=== PATIENT | male | born 1985 | race Caucasian/White ===

== ENCOUNTER 2017-09-12 11:24 | Emergency (ER) | payer OTHER ==
[~2017-09-12] VITALS: Ht 172.7 cm; Wt 91.4 kg
[2017-09-12 11:53] VITALS: BP 121/77
--- NOTE | 2017-09-12 12:02 | NUR ---
32M BIB FAMILY C/O COUGH WITH PRODUCTIVE WHITE PHLEGM X 1 WEEK; BL LUNG SOUNDS CLEAR, RR EVEN/UNLABORED, EQUAL RISE/FALL OF CHEST NOTED AT THIS TIME; PT C/O THROAT PAIN WITH COUGHING, PRESSURE, NON-RADIATING, 9/10 AT THIS TIME; PT C/O 2 EPISODES OF NAUSEA AND VOMITING, BUT STATES NO NAUSEA, VOMITING OR DIARRHEA AT THIS TIME; ABDOMEN SOFT, NON-TENDER, ACTIVE BOWEL SOUNDS X 4 QUADRANTS; PT AA&OX4, PERRLA, SKIN IS WARM/DRY/INTACT AT THIS TIME; STEADY GAIT; PT RESTING IN BED WITH HOB ELEVATED AND IN LOWEST POSITION; POSITIONED FOR COMFORT; ER MD MADE AWARE OF STATUS. WILL CONTIUE TO MONITOR.
--- NOTE | 2017-09-12 12:02 | NUR ---
PT AMBULATED TO BED 7.
--- NOTE | 2017-09-12 12:02 | NUR ---
XRAY AT BEDSIDE.
[2017-09-12] MEDS ORDERED: ALBUTEROL SULFATE/IPRATROPIU 3 ML SOL IH ONE (12:10)
[2017-09-12] MEDS ORDERED: predniSONE 20 MG TAB PO ONE (12:10)
--- NOTE | 2017-09-12 12:18 | NUR ---
RT AT BEDSIDE.
[2017-09-12 13:43] VITALS: BP 122/76
--- NOTE | 2017-09-12 13:43 | NUR ---
Patient discharged with v/s stable. Written and verbal after care instructions given and explained. Patient alert, oriented and verbalized understanding of instructions. Ambulatory with steady gait. All questions addressed prior to discharge. ID band removed. Patient advised to follow up with PMD. Rx of ALBUTEROL 90MCG/ACTUATION INHALATION, ZITHROMAX Z-SIRIA 250MG TAB AND PREDNISONE 50MG TAB given. Patient educated on indication of medication including possible reaction and side effects. Opportunity to ask questions provided and answered.
== END 2017-09-12 13:43 | disposition home or self-care (01) ==
LOC: MED 11:24
DX: J20.9 Acute bronchitis, unspecified (principal)
CPT/HCPCS: 71010; 94640; 94760; 99283; J7512; J7620; Q0092

== ENCOUNTER 2018-01-09 16:11 | Emergency (ER) | payer OTHER ==
[~2018-01-09] VITALS: Ht 162.6 cm; Wt 91.2 kg
[2018-01-09 16:17] VITALS: BP 134/74
--- NOTE | 2018-01-09 16:21 | NUR ---
Pt taken to chair B
--- NOTE | 2018-01-09 16:24 | NUR ---
32M BIB SELF C/O LOW BACK PAIN S/P " LIFTING A POOL" X 3 DAYS AGO. PT STATES " I FEEL GOOD NOW, BUT I NEED TO BE CLEARED FOR WORK". DENIES N/V/D; SKIN IS PINK/WARM/DRY; AAOX4 WITH EVEN AND STEADY GAIT; LUNGS CLEAR BL; HR EVEN AND REGULAR; PT DENIES ANY FEVER, CP, SOB, OR COUGH AT THIS TIME; PATIENT STATES PAIN OF 0/10 AT THIS TIME; VSS; ER MD MADE AWARE OF PT STATUS.
[2018-01-09 16:57] VITALS: BP 134/74
--- NOTE | 2018-01-09 16:57 | NUR ---
Patient discharged with v/s stable. Written and verbal after care instructions given and explained. Patient verbalized understanding. Ambulatory with steady gait. All questions addressed prior to discharge. Advised to follow up with PMD.
== END 2018-01-09 16:57 | disposition home or self-care (01) ==
LOC: MED 16:11
DX: M54.5 Low back pain (principal)
CPT/HCPCS: 99281

== ENCOUNTER 2018-06-29 10:39 | Emergency (ER) | payer OTHER ==
[~2018-06-29] VITALS: Ht 167.6 cm; Wt 86.2 kg
[2018-06-29 10:43] VITALS: BP 122/52
--- NOTE | 2018-06-29 10:48 | NUR ---
pt ambualtes w/ steady gait to bed 7 at this time w/ even, steady gait. Report given to STEPHANY Sherman.
--- NOTE | 2018-06-29 10:54 | NUR ---
33 yo m bib self w/ c/o sore throat, "stuffy nose" and head congestion x this morning. Pt denies cough. Pt has been unable to eat or drink today. reports pain 7/10 from head congestion. denies n/v. abd soft, non tender Pt tonsills/uvula appear very red and inflammed/swollen. No respiratory distress or SOB at this time. Reports that his children are sick at home with the same symptoms. Pt denies fever, and no fever present at this time. Pt aaox4, gcs 15, cms intact. rr even and unlabored.lungs clear bilaterally with even unlabored breaths. abd soft, non-tender. ER MD made aware will continue to monitor. pt positioned for comfort. hx denies rx denies
[2018-06-29] MEDS ORDERED: DEXAMETHASONE 10 MG/ML VIAL IM ONE (11:00)
[2018-06-29] MEDS ORDERED: CLINDAMYCIN 600 MG/4 ML VIAL IM ONE (11:00)
[2018-06-29] MEDS ORDERED: ALBUTEROL 0.083% 2.5 MG/3 ML NEBU INH ONE (11:00)
--- NOTE | 2018-06-29 11:00 | NUR ---
Patient being evaluated by physician at bedside.
--- NOTE | 2018-06-29 11:25 | NUR ---
rt at bedside
[2018-06-29 12:00] VITALS: BP 125/60
--- NOTE | 2018-06-29 12:00 | NUR ---
Patient discharged with v/s stable. Written and verbal after care instructions given and explained. Patient alert, oriented and verbalized understanding of instructions. Ambulatory with steady gait. All questions addressed prior to discharge. ID band removed. Patient advised to follow up with PMD. Rx of prednisone, clindamycin given. Patient educated on indication of medication including possible reaction and side effects. Opportunity to ask questions provided and answered.
== END 2018-06-29 12:00 | disposition home or self-care (01) ==
LOC: MED 10:39
DX: J02.9 Acute pharyngitis, unspecified (principal); F12.10 Cannabis abuse, uncomplicated
CPT/HCPCS: 94640; 96372; 99284; J1100; J3490; J7613

== ENCOUNTER 2018-07-08 17:28 | Emergency (ER) | payer OTHER ==
[~2018-07-08] VITALS: Ht 157.5 cm; Wt 71.9 kg
[2018-07-08 17:35] VITALS: BP 156/78
[2018-07-08 18:01] LABS: BASOPHILS % (AUTO) 0.3 % (0.0-2.0); EOSINOPHILS # (AUTO) 0.5 K/uL (0-0.4); EOSINOPHILS % (AUTO) 5.7 % (0.0-4.0); HEMATOCRIT 41.4 % (36-52); HEMOGLOBIN 13.9 g/dL (12.0-18.0); LYMPHOCYTES # (AUTO) 3.1 K/uL (2.0-11.5); LYMPHOCYTES % (AUTO) 37.8 % (20.5-51.1); MEAN CORPUSCULAR HEMOGLOBIN 30 pg (27-31); MEAN CORPUSCULAR HGB CONC 34 g/dL (33-37); MEAN CORPUSCULAR VOLUME 87.7 fL (80-94); MONOCYTES # (AUTO) 0.8 K/uL (0.8-1.0); MONOCYTES % (AUTO) 9.9 % (1.7-9.3); NEUTROPHILS # (AUTO) 3.8 K/uL (1.8-7.7); NEUTROPHILS % (AUTO) 46.3 % (42.2-75.2); PLATELET COUNT (AUTO) 228 K/uL (140-450); RED BLOOD CELL COUNT(AUTO) 4.72 MIL/uL (4.20-6.10); RED CELL DISTRIBUTION WIDTH 13.8 % (11.6-13.7); WHITE BLOOD COUNT (AUTO) 8.2 K/uL (4.8-10.8)
[2018-07-08 18:35] LABS: ANION GAP 9.2 (8-16); CARBON DIOXIDE 27.1 mmol/L (21-32); CREATININE 0.8 mg/dL (0.7-1.3); POTASSIUM 3.3 mmol/L (3.5-5.1)
[2018-07-08 18:40] LABS: ALBUMIN 4.3 g/dL (3.4-5.0); TOTAL BILIRUBIN 0.3 mg/dL (0.0-1.0)
--- NOTE | 2018-07-08 18:55 | NUR ---
PT AMBULATES TO BED 6
--- NOTE | 2018-07-08 19:10 | NUR ---
AAOX4 WITH EVEN AND STEADY GAIT; ASSUMED CARE OF PT AT THIS TIME. C/O INTERMITTENT, SUB-STERNAL CP X 2 WEEKS. LUNGS CLEAR BL; HR EVEN AND REGULAR; PATIENT STATES PAIN OF 7/10 AT THIS TIME; VSS; PATIENT POSITIONED FOR COMFORT; HOB ELEVATED; BEDRAILS UP X2; BED DOWN. ER MD MADE AWARE OF PT STATUS. WILL CONTINUE TO MONITOR.
[2018-07-08 20:14] LABS: BARBITURATE, URINE NEG. ng/ml (NEG <=200); BENZODIAZEPINE, URINE NEG. ng/mL (NEG <=200); CANNABINOID, URINE NEG. ng/mL (NEG <=50); COCAINE, URINE NEG. ng/mL (NEG <=300); OPIATE, URINE NEG. ng/mL (NEG <=2000); PHENCYCLIDINE SCREEN,URINE NEG. ng/mL (NEG <=25)
--- NOTE | 2018-07-08 20:58 | NUR ---
Dr. Albright evaluating patient at bedside.
[2018-07-08] MEDS ORDERED: FAMOTIDINE 20 MG TAB PO ONE (21:20)
[2018-07-08] MEDS ORDERED: ONDANSETRON 4 MG ODT PO ONE (21:20)
[2018-07-08] MEDS ORDERED: ALUMINUM HYD/MAG/SIMETHICONE 30 ML, DICYCLOMINE HCL LIQUID 20 MG, LIDOCAINE VISCOUS 2% ... PO ONE ×3 (21:20)
[2018-07-08 23:00] VITALS: BP 148/74
--- NOTE | 2018-07-08 23:00 | NUR ---
Patient discharged with v/s stable. Written and verbal after care instructions given and explained. Patient alert, oriented and verbalized understanding of instructions. Ambulatory with steady gait. All questions addressed prior to discharge. ID band removed. Patient advised to follow up with PMD. Rx of REGLAN, ULTRAM, AND PEPCID given. Patient educated on indication of medication including possible reaction and side effects. Opportunity to ask questions provided and answered.
== END 2018-07-08 23:00 | disposition home or self-care (01) ==
LOC: MED 17:28
DX: K21.0 Gastro-esophageal reflux disease with esophagitis (principal)
CPT/HCPCS: 36415; 71045; 80053; 80305; 84484; 85025; 93005; 99285; S0119

== ENCOUNTER 2019-10-31 18:20 | Emergency (ER) | payer SELFPAY ==
[~2019-10-31] VITALS: Ht 162.6 cm; Wt 99.3 kg
[2019-10-31 18:25] VITALS: BP 141/93
--- NOTE | 2019-10-31 18:55 | NUR ---
PT AMBULATED TO BED 12
--- NOTE | 2019-10-31 19:00 | NUR ---
34/M C/O PRODUCTIVE COUGH, SORE THROAT, SNEEZING, NASAL CONGESTION, RUNNY NOSE X2 WEEKS. SPO2 95% RA. PLEURITIC CHEST PAIN. COUGH WORSE AT NIGHT. THROAT PAIN 6/10. HX: NONE RX: NONE
[2019-10-31 20:03] VITALS: BP 139/81
--- NOTE | 2019-10-31 20:03 | NUR ---
PT DISCHARGED WITH PAPERWORK. EDUCATED PT REGARDING MEDICATIONS AND D/C DIAGNOSIS. PT VERBALIZED UNDERSTANDING OF TEACHING. TOLD PT TO FOLLOW UP WITH PCP AND WHEN TO RETURN TO ED. PT AT STABLE CONDITION. ALL QUESTIONS ANSWERED.
== END 2019-10-31 20:03 | disposition home or self-care (01) ==
LOC: MED 18:20
DX: R05 Cough (principal); J02.9 Acute pharyngitis, unspecified; R06.02 Shortness of breath
CPT/HCPCS: 99283

== ENCOUNTER 2019-11-23 14:37 | Emergency (ER) | payer SELFPAY ==
[~2019-11-23] VITALS: Ht 162.6 cm; Wt 86.2 kg
[2019-11-23 14:59] VITALS: BP 119/70
[2019-11-23] MEDS ORDERED: KETOROLAC 15 MG/ML VIAL IM ONE (15:10)
--- NOTE | 2019-11-23 15:12 | NUR ---
34 Y/O MALE C/O PRODUCTIVE COUGH X 1 WEEK. PT STATES LT RIB PAIN PROVOKED BY COUGH. RR EVEN AND UNLABORED. STATES HE HAD FEVER 3 DAYS AGO, AFEBRILE AT THIS TIME. DENIES SMOKING. DENIES N/V/D. PT SITTING IN [facility] CALM AND PLEASANT. VSS. MEDHX: DENIES ALLERGIES: NKA
--- NOTE | 2019-11-23 16:06 | NUR ---
PT STATES DECREASE IN PAIN AFTER MEDICATION. 5/10 TOLERABLE RIB PAIN AT THIS TIME
[2019-11-23 16:26] VITALS: BP 119/70
--- NOTE | 2019-11-23 16:26 | NUR ---
Patient discharged with v/s stable. Written and verbal after care instructions given and explained. Patient alert, oriented and verbalized understanding of instructions. Ambulatory with steady gait. All questions addressed prior to discharge. ID band removed. Patient advised to follow up with PMD. Rx of FLEXIRIL given. Patient educated on indication of medication including possible reaction and side effects. Opportunity to ask questions provided and answered.
== END 2019-11-23 16:26 | disposition home or self-care (01) ==
LOC: MED 14:37
DX: R07.89 Other chest pain (principal); R05 Cough
CPT/HCPCS: 71046; 96372; 99283; J1885

== ENCOUNTER 2021-05-20 11:39 | Emergency (ER) | payer OTHER ==
[~2021-05-20] VITALS: Ht 167.6 cm; Wt 100.7 kg
[2021-05-20 11:45] VITALS: BP 120/90
--- NOTE | 2021-05-20 11:55 | NUR ---
36 Y/O MALE HERE FOR MEDICAL CLEARANCE FOR WORK. PT STATES HE WAS EXPERIENCING SORE THROAT, FEVER, AND CONGESTION X4DAYS AGO TODAY NO SYMPTOMS. 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 DENIES PMH NKA
--- NOTE | 2021-05-20 12:26 | NUR ---
Patient discharged with v/s stable. Written and verbal after care instructions given and explained. Patient verbalized understanding. Ambulatory with steady gait. All questions addressed prior to discharge. Advised to follow up with PMD. Discharged with work note.
== END 2021-05-20 12:26 | disposition home or self-care (01) ==
LOC: MED 11:39
DX: J02.9 Acute pharyngitis, unspecified (principal); R05 Cough; R09.81 Nasal congestion
CPT/HCPCS: 99281

== ENCOUNTER 2021-06-25 20:02 | Emergency (ER) | payer OTHER ==
[~2021-06-25] VITALS: Ht 167.6 cm; Wt 98.9 kg
[2021-06-25 20:20] VITALS: BP 141/104
--- NOTE | 2021-06-25 20:26 | NUR ---
PT TO LOBBY.
--- NOTE | 2021-06-25 22:15 | NUR ---
REFUSES SWAB FOR NOVEL, ERMDS NOTED
--- NOTE | 2021-06-25 23:55 | NUR ---
mildred chávez . Dr. Awad made aware.
== END 2021-06-25 23:55 | disposition left against medical advice (07) ==
LOC: MED 20:02
DX: R11.2 Nausea with vomiting, unspecified (principal); Z20.822 Contact with and (suspected) exposure to COVID-19
CPT/HCPCS: 99281